=== PATIENT | female | born 1965 | race Caucasian/White ===

== ENCOUNTER 2019-10-28 19:03 | Emergency (ER) | payer OTHER, SELFPAY ==
--- NOTE | 2019-10-28 19:49 | RAD ---
CHEST ONE VIEW: 10/28/19 INDICATION: History of dyspnea. COMPARISON: Prior exam dated 10/15/19. FINDINGS: There is cardiomegaly with pulmonary vascular congestion and perihilar edema. There is small bilatera l pleural effusions. No pneumothorax is evident. IMPRESSION: Findings suspicious for mild CHF. POS: [facility]
[2019-10-28 20:31] LABS: #Basophils 0.1 thou/uL (0.0-0.2); #Eosinphils 0.8 thou/uL (0.0-0.7); #Monocytes 0.9 thou/uL (0.11-0.59); #Neutrophils 5.8 thou/uL (1.40-6.50); %Eosinophils 9.3 % (0.0-10.0); %Lymphocytes 11.6 % (21.0-51.0); %Monocytes 10.2 % (0.0-10.0); %Neutrophils 67.9 % (42.0-75.0); Hemoglobin 10.3 g/dL (12.0-16.0); Mean Corpuscular Hemoglobin 27.8 pg (27.0-31.0); Mean Corpuscular Volume 89.8 fL (78.0-98.0); Platelet Count 279 thou/uL (130-400); RBC Distribution Width 16.2 % (11.5-14.5); Red Blood Cell (RBC) Count 3.72 mill/uL (4.20-5.40); White Blood Cell (WBC) Count 8.5 thou/uL (4.8-10.8)
[2019-10-28 20:50] LABS: ALT (SGPT) 13 U/L (8-55); AST (SGOT) 13 U/L (5-34); Albumin 3.8 g/dL (3.5-5.0); Alkaline Phosphatase 83 U/L (40-110); Anion Gap 15 mmol/L (10-20); BUN (Urea Nitrogen) 10 mg/dL (9.8-20.1); Bilirubin, Total 0.4 mg/dL (0.2-1.2); Calc. Creatinine Clearance 0 mL/min (70-130); Calcium 8.8 mg/dL (7.8-10.44); Carbon Dioxide 24 mmol/L (22-29); Chloride 103 mmol/L (98-107); Estimated GFR-MDRD 79; Globulin 2.6 g/dL (2.4-3.5); Glucose 99 mg/dL (70-105); Potassium 3.6 mmol/L (3.5-5.1); Protein, Total 6.4 g/dL (6.0-8.3); Sodium 138 mmol/L (136-145)
[2019-10-28] MEDS ORDERED: Enoxaparin Sodium 100 MG/ML SYRINGE ONE (21:37)
[2019-10-28] MEDS ORDERED: Ventolin HFA Inhaler 60 PUFF INHALER ONE (21:37)
[2019-10-28] MEDS ORDERED: Aspirin Chewable 81 MG TAB ONE (21:37)
[2019-10-28] MEDS ORDERED: Promethazine HCl 25 MG/ML VIAL ONE (21:47)
[2019-10-28] MEDS ORDERED: Furosemide 20 MG/2 ML VIAL ONE (21:50)
== END 2019-10-28 22:15 | disposition short-term general hospital (02) ==
LOC: NAV ERS 19:03
DX: R06.00 Dyspnea, unspecified (principal); F41.9 Anxiety disorder, unspecified; I10 Essential (primary) hypertension; R07.81 Pleurodynia; Z79.899 Other long term (current) drug therapy
CPT/HCPCS: 36415; 71045; 80053; 83605; 83880; 84484; 85025; 85379; 93005; 96372; 96374; J1650; J1940; J2550